=== PATIENT | male | born 1980 | race Caucasian/White ===

== ENCOUNTER 2022-03-30 11:08 | Emergency (ER) | payer OTHER ==
[~2022-03-30] VITALS: Ht 188 cm; Wt 88.0 kg
== END 2022-03-30 15:22 | disposition home or self-care (01) ==
LOC: ED 11:08
DX: S80.00XA Contusion of unspecified knee, initial encounter (principal); V89.2XXA Person injured in unspecified motor-vehicle accident, traffic, initial encounter
CPT/HCPCS: 99284